=== PATIENT | male | born 1995 ===

== ENCOUNTER 2018-05-04 21:54 | Emergency (ER) | payer SELFPAY ==
[2018-05-04 22:31] VITALS: TEMP 97.6; O2SAT 99
[2018-05-04] MEDS ORDERED: Sodium Chloride 0.9% 1,000 ML IV STA (22:45)
[2018-05-04 23:35] LABS: BASO # 0.1 K/uL (0.0-0.2); BASO % 0.8 % (0.0-2.0); EOS # 0.2 K/uL (0.0-0.7); EOS % 3.4 % (0.0-4.0); HEMOGLOBIN 13.2 g/dL (12.0-18.0); LYMPH # 1.4 K/uL (1.0-4.3); LYMPH % 19.4 % (20.0-40.0); MEAN CELL VOLUME 96.3 fl (80.0-94.0); MEAN CORPUSCULAR HEMOGLOBIN 32.3 pg (27.0-31.0); MEAN CORPUSCULAR HGB CONC 33.5 g/dL (33.0-37.0); MEAN PLATELET VOLUME 8.4 fl (7.2-11.7); MONO # 0.5 K/uL (0.0-0.8); MONO % 7.6 % (0.0-10.0); NEUT % 68.8 % (50.0-75.0); RBC 4.09 Mil/uL (4.40-5.90); RED CELL DISTRIBUTION WIDTH 13.4 % (11.5-14.5); WHITE BLOOD COUNT 7.2 K/uL (4.8-10.8)
[2018-05-04 23:50] LABS: BLOOD UREA NITROGEN 22 mg/dl (9-20); CALCIUM 9.4 mg/dL (8.4-10.2); GFR NON-AFRICAN AMERICAN > 60
[2018-05-04 23:55] LABS: ACETAMINOPHEN < 10.0 ug/ml (10.0-30.0); SALICYLATE < 1.0 mg/dl
--- NOTE | 2018-05-05 00:07 | ED PDOC ---
HPI: General Adult Time Seen by Provider: 05/04/18 22:30 Chief Complaint (Nursing): Weakness/Neurological Deficit Chief Complaint (Provider): substance use History Per: Patient History/Exam Limitations: no limitations Onset/Duration Of Symptoms: Hrs (19:00) Current Symptoms Are (Timing): Still Present Additional Complaint(s): Gulshan Caballero is a 23 year old male, with no significant past medical history, who presents to the emergency department for evaluation after he consumed 150mg of THC in the form of marijuana edibles at 19:00. Patient states he took that much because he had never taken it before. Patient states he "didn't feel anything" at first so kept taking more and more. At 21:00 he felt anxious, began trembling uncontrollably and felt very weak. Upon arrival to ED patient began vomiting. Patient reports x4 vomiting episodes since he ingested the edibles. He reports still feeling weak and states he also feels very tired. He denies any other medical complaints. PMD: None provided. Past Medical History Reviewed: Historical Data, Nursing Documentation, Vital Signs Vital Signs: Last Vital Signs Temp 97.6 F 05/04/18 22:23 Pulse 102 H 05/04/18 22:23 Resp 18 05/04/18 22:23 BP 101/60 05/04/18 22:23 Pulse Ox 99 05/04/18 22:23 - Medical History PMH: Asthma - Surgical History Surgical History: No Surg Hx - Family History Family History: States: Unknown Family Hx - Social History Current smoker - smoking cessation education provided: No Alcohol: None Drugs: Cannabis - Home Medications Home Medications: Ambulatory Orders Medication Instructions Recorded Ibuprofen [Motrin] 600 mg PO Q6 PRN #20 tab 07/03/14 Ibuprofen [Motrin] 600 mg PO Q6 PRN #20 tab 09/25/14 Ibuprofen [Motrin Tab] 1 tab PO Q6 PRN #20 tab 01/05/16 - Allergies Allergies/Adverse Reactions: Allergies Allergy/AdvReac Type Severity Reaction Status Date / Time No Known Allergies Allergy Verified 01/05/16 19:56 Review of Systems ROS Statement: Except As Marked, All Systems Reviewed And Found Negative Constitutional: Positive for: Weakness (and tired) Gastrointestinal: Positive for: Vomiting (x4) Psych: Positive for: Anxiety Physical Exam - Reviewed Nursing Documentation Reviewed: Yes Vital Signs Reviewed: Yes - Physical Exam Appears: Positive for: No Acute Distress (tired appearing) Head Exam: Positive for: ATRAUMATIC, NORMAL INSPECTION, NORMOCEPHALIC Skin: Positive for: Warm, Dry, Pallor Eye Exam: Positive for: Normal appearance, EOMI, PERRL ENT: Positive for: Other (dry mucous membranes) Neck: Positive for: Normal, Painless ROM Cardiovascular/Chest: Positive for: Regular Rate, Rhythm. Negative for: Murmur Respiratory: Positive for: Normal Breath Sounds. Negative for: Respiratory Distress Gastrointestinal/Abdominal: Positive for: Normal Exam, Soft. Negative for: Tenderness Back: Positive for: Normal Inspection. Negative for: L CVA Tenderness, R CVA Tenderness, Vertebral Tenderness Extremity: Positive for: Normal ROM (upper and lower extremities). Negative for: Deformity, Swelling Neurological/Psych: Positive for: Awake, Alert, Normal Tone, Oriented, Gait (steady), Other (slow speech). Negative for: Motor/Sensory Deficits - Laboratory Results Result Diagrams: 05/04/18 23:05 05/04/18 23:05 - ECG O2 Sat by Pulse Oximetry: 99 (RA) Pulse Ox Interpretation: Normal Medical Decision Making Medical Decision Making: Time: 22:30 A/P: 23 year old male with no past medical history presents for cannabis overdose. Will treat patient symptomatically and monitor. Plan: --Acetaminophen --Alcohol serum --BMP --CK-MB --Drug screen, urine --Salicylate --CBC w/ differential --NaCl 1,000 ml IV 1,000 mls/hr --Zofran Inj 4 mg IVP --Reevaluation 230AM --Patient is now awake alert, steady gait, feeling well, tolerating PO --Advised abstension from marijuana edibles of such high quantities in the future --Well appearing upon discharge Scribe Attestation: Documented by Xavier Foster, acting as a scribe for Jeff Prasad MD Provider Scribe Attestation: All medical record entries made by the Scribe were at my direction and perso kasandra dictated by me. I have reviewed the chart and agree that the record accurately reflects my personal performance of the history, physical exam, medical decision making, and the department course for this patient. I have also personally directed, reviewed, and agree with the discharge instructions and disposition. Disposition - Clinical Impression Clinical Impression: Cannabis abuse - Patient ED Disposition Is Patient to be Admitted: No - Disposition Referrals: Yesika Olson [Outside] Disposition: Routine/Home Disposition Time: 02:47 Condition: IMPROVED Instructions: Marijuana Use and Addiction (DC) Forms: [employer] (Gabonese)
[2018-05-05 06:26] VITALS: BP 127/83; PULSE 70; RESP 20
== END 2018-05-05 02:50 | disposition home or self-care (01) ==
LOC: H.ER 21:54
DX: F12.10 Cannabis abuse, uncomplicated (principal)
CPT/HCPCS: 80048; 82553; 85025; 96374; 99284; G0480; J2405; J7030